=== PATIENT | male | born 1985 | race Two or more races ===

== ENCOUNTER 2017-06-07 00:03 | Emergency (ER) | payer OTHER ==
[~2017-06-07] VITALS: Ht 182.9 cm; Wt 72.6 kg
[2017-06-07 00:31] VITALS: BP 145/79
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
== END 2017-06-07 01:55 ==
LOC: EDBD 00:03 → EMR 00:20
DX: M25.562 Pain in left knee (principal)
CPT/HCPCS: 99283